=== PATIENT | female | born 1945 | race Caucasian/White ===

== ENCOUNTER 2020-04-30 15:33 | Inpatient (IN) ==
[2020-04-30] MEDS ORDERED: Gadolinium Contrast Agent (WT Based) IV PRN (19:41)
[2020-04-30] MEDS ORDERED: Dextrose Gel 15 GM/37.5 ML TUBE PO PRN ×2 (21:17)
[2020-04-30] MEDS ORDERED: *HR* Dextrose 50 % in Water (Vial) 50 ML VIAL IVP PRN (21:17)
[2020-04-30] MEDS ORDERED: D5% in Water 1,000 ML IVC PRN (21:17)
[2020-04-30] MEDS ORDERED: Albuterol Neb 0.63 MG/3 ML VIAL IH PRN (22:00)
[2020-05-01] MEDS: *HR* Heparin 5,000 UNIT/ML VIAL SQ SCH ×4 (00:13→21:09)
[2020-05-01] MEDS: 0.9 % Sodium Chloride 1,000 ML IVC SCH ×2 (00:13→15:10)
[2020-05-01] MEDS: rOPINIRole 1 MG, rOPINIRole 3 MG PO SCH ×2 (00:23→21:04)
[2020-05-01 04:30] LABS: Estimated Average Glucose 123 mg/dl
[2020-05-01 04:46] LABS: INR 1.1; Prothrombin Time 13.2 Seconds (9.4-12.1)
[2020-05-01 05:05] LABS: Alanine Aminotransferase 12 Units/L (7-52); Albumin 3.1 g/dL (3.5-5.7); Albumin/Globulin Ratio 0.9 (1.1-2.2); Alkaline Phosphatase 81 Units/L (34-104); Aspartate Amino Transferase 30 Units/L (13-39); BUN/Creatinine Ratio 24 (6-26); Bilirubin,Total 0.5 mg/dL (0.3-1.0); Blood Urea Nitrogen 19 mg/dL (8-23); Calcium 9.7 mg/dL (8.6-10.3); Carbon Dioxide 28 mEq/L (23-29); Chloride 110 mEq/L (98-107); Chol/HDL Ratio 4.2 (0-4.9); Cholesterol 168 mg/dL (< 200); Globulin 3.3 g/dL (2.4-3.5); Glucose 87 mg/dL (70-105); HDL Cholesterol 40 mg/dL (40-59); LDL Cholesterol,Calculated 99 mg/dL (< 100); Osmolality,Calculated 298 (280-300); Potassium 3.7 mEq/L (3.5-5.1); Sodium 143 mEq/L (136-145); Total Protein 6.4 g/dL (6.4-8.9); Triglycerides 146 mg/dL (< 150); eGFR For African Americans > 60 (> 60); eGFR For Non-African Americans > 60 (> 60)
[2020-05-01] MEDS: Levothyroxine 25 MCG TABLET PO SCH ×2 (05:15→08:16)
[2020-05-01] MEDS: Insulin LISPRO 300 UNITS/3 ML VIAL SQ SCH ×3 (08:09→16:46)
[2020-05-01] MEDS: allopurinoL 100 MG TABLET PO SCH ×2 (08:14→21:05)
[2020-05-01] MEDS: risperiDONE 0.25 MG TABLET PO SCH (08:16)
[2020-05-01] MEDS: Aspirin Enteric Coated 81 MG Tablet PO SCH (08:16)
[2020-05-01] MEDS ORDERED: Perflutren Lipid Microsphere 1.3 ML in 0.9 % Sodium Chloride 8.7 ML IVP PRN (08:55)
[2020-05-01] MEDS ORDERED: (Magnesium L-Lactate [Mag-Tab Sr] 84 MG) PO SCH (09:00)
[2020-05-01] MEDS: Furosemide 20 MG TABLET PO SCH (11:49)
[2020-05-01] MEDS: NIFEdipine XL (24 HR) 30 MG TAB.ER.24 PO SCH (11:49)
[2020-05-01] MEDS: Famotidine 20 MG TABLET PO SCH ×2 (11:50→21:04)
[2020-05-01] MEDS: cefTRIAXone 1,000 MG in Water for inj. (sterile) 10 ML IVP SCH (15:06)
[2020-05-01] MEDS ORDERED: risperiDONE 1 MG TABLET PO SCH (21:00)
[2020-05-01] MEDS ORDERED: NON-FORMULARY MEDICATION 1 EACH EACH (Ropinirole Hcl [Requip] 4 MG) PO SCH (21:00)
[2020-05-02] MEDS: 0.9 % Sodium Chloride 1,000 ML IVC SCH (05:34)
[2020-05-02] MEDS: Levothyroxine 25 MCG TABLET PO SCH ×2 (05:36→08:18)
[2020-05-02] MEDS: *HR* Heparin 5,000 UNIT/ML VIAL SQ SCH ×2 (05:36→15:16)
[2020-05-02] MEDS: Insulin LISPRO 300 UNITS/3 ML VIAL SQ SCH ×2 (07:38→11:51)
[2020-05-02] MEDS: risperiDONE 0.25 MG TABLET PO SCH (08:15)
[2020-05-02] MEDS: Aspirin Enteric Coated 81 MG Tablet PO SCH (08:16)
[2020-05-02] MEDS: allopurinoL 100 MG TABLET PO SCH (08:17)
[2020-05-02] MEDS: Famotidine 20 MG TABLET PO SCH (08:17)
[2020-05-02] MEDS: NIFEdipine XL (24 HR) 30 MG TAB.ER.24 PO SCH (08:18)
[2020-05-02] MEDS: cefTRIAXone 1,000 MG in Water for inj. (sterile) 10 ML IVP SCH (08:20)
[2020-05-02] MEDS: Furosemide 20 MG TABLET PO SCH (08:38)
[2020-05-02] MEDS ORDERED: Perflutren Lipid Microsphere 1.3 ML in 0.9 % Sodium Chloride 8.7 ML IVP PRN (08:49)
[2020-05-02] MEDS ORDERED: Magnesium Oxide 400 MG TABLET PO SCH (09:00)
[2020-05-02 15:47] VITALS: BP 168/60
[2020-05-02 15:47] LABS: Adenovirus Not Detected (Not Detect); Bordetella Pertussis Not Detected (Not Detect); Chlamydophila pneumoniae Not Detected (Not Detect); Coronavirus 229E Not Detected (Not Detect); Coronavirus HKU1 Not Detected (Not Detect); Coronavirus NL63 Not Detected (Not Detect); Coronavirus OC43 Not Detected (Not Detect); Human Metapneumovirus Not Detected (Not Detect); Human Rhinovirus/Enterovirus Not Detected (Not Detect); Influenza A Subtype 2009 H1 Not Detected (Not Detect); Influenza B Not Detected (Not Detect); Mycoplasma pneumoniae Not Detected (Not Detect); Parainfluenza Virus 1 Not Detected (Not Detect); Parainfluenza Virus 2 Not Detected (Not Detect); Parainfluenza Virus 3 Not Detected (Not Detect); Parainfluenza Virus 4 Not Detected (Not Detect); Respiratory Syncytial Virus Not Detected (Not Detect); SARS-CoV-2 Not Detected (Not Detect)
== END 2020-05-02 16:44 | DRG 689 ==
LOC: 3BNU → SUATTDRO 18:02
PROVIDERS: ADMIT Internal Medicine; ATTEND Internal Medicine